=== PATIENT | male | born 1930 | race Caucasian/White ===

== ENCOUNTER 2018-11-02 13:44 | Inpatient (IN) | payer OTHER ==
[~2018-11-02] VITALS: Ht 170.2 cm; Wt 63.5 kg
[2018-11-02 13:47] VITALS: BP 111/63
[2018-11-02] MEDS ORDERED: FLECAINIDE ACET50 M1 PO (13:48)
[2018-11-02] MEDS ORDERED: LISINOPRIL20 MG PO (13:49)
[2018-11-02] MEDS ORDERED: SIMVASTATIN40 MG PO (13:49)
[2018-11-02 14:48] LABS: URINE BILIRUBIN NEGATIVE (Negative); URINE BLOOD 2+ (Negative); URINE CLARITY CLEAR; URINE COLOR YELLOW; URINE GLUCOSE-RANDOM* NEGATIVE (Negative); URINE KETONES NEGATIVE (Negative); URINE NITRITE-REFLEX NEGATIVE (Negative); URINE PROTEIN (DIPSTICK) TRACE (Negative); URINE SPECIFIC GRAVITY 1.015 (1.005-1.035)
[2018-11-02 14:50] LABS: URINE LEUKOCYTES-REFLEX 3+ (Negative)
[2018-11-02 15:11] LABS: URINE RBC >20 Many /HPF (0-2); URINE WBC-REFLEX >25 Many /HPF (0-5)
[2018-11-02 15:11] LABS: ABSOLUTE NEUTROPHILS 10.7 thou/uL (1.4-8.2); BASOPHILS 0.3 % (0.0-2.0); EOSINOPHILS 0.1 % (0.0-3.0); HEMATOCRIT 40.6 % (42.0-52.0); HEMOGLOBIN 13.3 gm/dL (14.0-18.0); LYMPHOCYTES 1.9 % (24.0-44.0); MCH 31.9 pg (26.0-34.0); MCHC 32.7 g/dL (28.0-37.0); MCV 97.3 fL (80.0-100.0); MONOCYTES 5.4 % (1.0-8.0); PLATELET COUNT 181 thou/uL (150-400); POLYS 92.3 % (36.0-66.0); RBC 4.18 mil/uL (4.50-6.00); RDW 14.4 % (10.5-14.5); WBC 11.6 thou/uL (4.0-11.0)
[2018-11-02 15:12] LABS: WBC CLUMPS Moderate (None Seen)
[2018-11-02 15:13] LABS: CASTS None Seen /LPF (None Seen); CRYSTALS None Seen /LPF (None Seen); SQUAMOUS 0-3 Few /LPF (0-3)
[2018-11-02 15:17] LABS: CALCIUM 8.9 mg/dL (8.5-10.1); CREATININE 1.5 mg/dL (0.7-1.3)
[2018-11-02 15:23] LABS: ALBUMIN 3.3 g/dL (3.4-5.0); TOTAL BILIRUBIN 1.8 mg/dL (<0.1-1.0); TOTAL PROTEIN 6.6 g/dL (6.4-8.2)
[2018-11-02 16:02] VITALS: BP 113/57
[2018-11-02 16:42] VITALS: BP 121/52
[2018-11-02 17:20] VITALS: BP 119/53
--- NOTE | 2018-11-02 18:30 | NUR ---
PT RECEIVED FROM [facility] ER TO RM 430 ALERT AND IN NO ACUTE DISTRESS. PT VERY WEAK AND NEEDS ASSIST TO TRANSFER OR AMBULATE AT THIS TIME. BASELINE AMBULATES INDEPENDENTLY. PT VERY FORGETFUL. SON AT BEDSIDE. URINE CLOUDY AND ODOROUS.
[2018-11-02 20:14] VITALS: BP 108/59
--- NOTE | 2018-11-03 02:05 | NUR ---
PT ASSESSMENT COMPLETED. PT IS ALERT AND ORIENTED UPON ADMISSION. HE GOT VERY RESTLESS AND CONFUSED AT BEDTIME. PT KEPT GETTING UP TO URINATE BUT YET HAS A COLLAZO CATHETER. PT HAD TO BE REMINDED SEVERAL TIMES THAT HE IS IN THE HOSPITAL. HE KEPT FIDGETING WITH COLLAZO. SOME CLOUDY URINE OUTPUT NOTED. PT GIVEN SOME TYLENOL AND AFTER ABOUT 2 HOURS FINALLY WENT TOO SLEEP. FALL PREC IN PLACE. WILL CONTINUE WITH POC TILL EOS.
[2018-11-03 05:42] LABS: CALCIUM 8.7 mg/dL (8.5-10.1); CREATININE 1.3 mg/dL (0.7-1.3); POTASSIUM 3.9 mmol/L (3.5-5.1)
[2018-11-03 07:15] VITALS: BP 113/39
--- NOTE | 2018-11-03 15:27 | NUR ---
ASSUMED PATIENT CARE AT 7 AM. CLIENT ORIENTED TO SELF AND SITUATION, CLIENT RESPONDED "I DON'T KNOW" WHEN ASKED WHAT YEAR IT IS. CLIENT WAS UNAWARE HE WAS IN THE HOSPITAL AND STATED "I DON'T KNOW" WHEN ASKED WHERE HE WAS. AT BEGINNING OF SHIFT CLIENT'S URINE WAS DARK YELLOW, BUT NOW THE URINE IS YELLOW- STRAW COLORED. COLLAZO CATHETER IN PLACE. CLIENT'S DIET IS ADEQUATE. CLIENT IS CONFUSED AND CALLS FOR HELP BUT DOESN'T KNOW WHAT HE NEEDS. CLIENT TOOK OFF HIS GOWN EARLIER IN THE DAY AND STATED HE WAS HOT, BUT ALLOWED RN EDUARDO AND Irish TO PUT HIS GOWN BACK ON. CLIENT CONTINUES TO HYDRATE WITH SMALL CUPS OF WATER WHEN OFFERED. WILL CONTINUE TO MONITOR. FALL PRECAUTIONS ARE IN PLACE.
[2018-11-03 15:39] VITALS: BP 145/58
[2018-11-03 20:30] VITALS: BP 145/64
--- NOTE | 2018-11-04 03:49 | NUR ---
PATIENT ALERT AND ORIENTED TO SELF ONLY. VERY CONFUSED AT SHIFT CHANGE. SEVERAL ATTEMPTS TO GET OOB SO HE COULD GET HIS CLOTHES ON AND GO TO WORK. COLLAZO TO D/D AND PATIENT PULLS ON IT AT TIMES. RESTLESS AND YELLING TO PEOPLE IN THE HALLWAY TO GET IN HIS ROOM AND HELP HIM. MEDICATED WITH SEROQUEL BY AM NURSE AROUND 183. HOWEVER, THIS NURSE MEDICATED PATIENT WITH ZOFRAN AT 2012 IN AN ATTEMPT TO CALM HIM DOWN HE WAS STILL VERY AGITATED AND RESTLESS. APPROXIMATELY 2129 PAIENT CALMED DOWN AND WAS ABLE TO GO TO SLEEP AND REST MOST OF THE NIGHT. WILL MONITOR.
[2018-11-04 05:25] LABS: HEMATOCRIT 38.3 % (42.0-52.0); HEMOGLOBIN 12.8 gm/dL (14.0-18.0); MCH 32.2 pg (26.0-34.0); MCHC 33.3 g/dL (28.0-37.0); MCV 96.6 fL (80.0-100.0); RBC 3.96 mil/uL (4.50-6.00); RDW 14.1 % (10.5-14.5); WBC 5.1 thou/uL (4.0-11.0)
[2018-11-04 07:37] VITALS: BP 132/74
--- NOTE | 2018-11-04 11:25 | NUR ---
Assumed care of to at 0700. Pt a&o to self and situation only. Mendez catheter in place. Pt has good appetite. IVF infusing. Pt has been calm so far in the shift. Fall precautions in place. Will continue to monitor.
[2018-11-04 16:02] LABS: URINE BILIRUBIN NEGATIVE (Negative); URINE BLOOD 2+ (Negative); URINE CLARITY CLEAR; URINE COLOR YELLOW; URINE GLUCOSE-RANDOM* NEGATIVE (Negative); URINE KETONES NEGATIVE (Negative); URINE LEUKOCYTES 1+ (Negative); URINE NITRITE NEGATIVE (Negative); URINE PROTEIN (DIPSTICK) NEGATIVE (Negative); URINE SPECIFIC GRAVITY 1.015 (1.005-1.035); URINE UROBILINOGEN >= 8.0 E.U./dl (0.2-1.0)
[2018-11-04 16:10] VITALS: BP 107/60
[2018-11-04 16:15] LABS: BACTERIA None Seen /HPF (None Seen); CASTS None Seen /LPF (None Seen); CRYSTALS None Seen /LPF (None Seen); MUCUS 0-3 Light strn/LPF (None Seen); SQUAMOUS None Seen /LPF (0-3); URINE RBC 3-10 Few /HPF (0-2); URINE WBC >25 Many /HPF (0-5); WBC CLUMPS Moderate (None Seen)
[2018-11-04 19:39] VITALS: BP 140/62
--- NOTE | 2018-11-05 02:28 | NUR ---
ASSUMED CARE OF PT @1900 PT ASSESSED AT START OF SHIFT ALERT AND ORIENTED AT START OF SHIFT BUT SOMETIMES FORGETFULL. DENIES PAIN. KEPT ASKING ABOUT THE TLEPHONE NO OF SON BERENICE GARDNER IF HE DID LEAVE A MISS CALL FOR THE STATION AND IF HE DID COME TO SEE HIM, PT STATES HE WANTS TO GO HOME. THIS NURSE ORIENTED PT THAT FAMILY WILL BE BACK AGAIN TOMORROW. NIGHT TIME SEROQUEL GIVEN FOR BEDTIME. PEPE D/C BY AM NURSE BEFORE SHIFT CHANGE. PT UP AD ULISES TO THE BATHROOM FOR TONIGHT DOESN'T USE CALL LIGHT, GETS UP FROM BED. BED ALARM ON AND FALL PREC IN PLACE. SLEPT IN AND OUT THROUGH THE NIGHT ONLY GETS UP TO THE BATHROOM. WILL CONT WITH POC TILL EOS.
[2018-11-05 03:45] VITALS: BP 149/59
[2018-11-05 08:38] VITALS: BP 146/55
--- NOTE | 2018-11-05 16:23 | NUR ---
PT ADMITTED RELATED TO URINARY/BLADDER ISSUES. CM REVIEWED CHART AND SPOKE WITH CARE TEAM. CM MET WITH PT AT BEDSIDE THIS DAY. PT SEEMED A&O X 4. CM ROLE INTRODUCED. PT INDICATED HE LIVES IN AM APARTMENT WITH SOME OTHER GUYS BUT THEY WERE OUT OF TOWN RIGHT NOW. PT INDICATED HE HAD ELEVATOR ACCESS BUT THAT THERE WERE 7 OR 8 STEPS INSIDE. 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 PT'S SON CALLED AND INDICATED THAT PT INFACT LIVES IN HIS OWN HOUSE ALONE AND THAT HE VISITS AT LEAST ONCE EVERY DAY. HE INDICATED THAT IF NEEDED HE WOULD BE ABLE TO MOVE IN WITH PT TO PROVIDE ASSISTANCE/SUPERVISON. HIS PHONE NUMBER IS . HE INDICATED THAT HE HAD ABSERVED PT BEING MORE CONFUSED CARD SELLER. CM INDICATED THAT THERAPY TO WORK WITH PT AND MAKE RECOMMENDATIONS BUT THAT CM HAD GIVEN PT A SNF LIST. CM TO FOLLOW INDICATED WITH DC PLANNING.
[2018-11-05 16:35] VITALS: BP 133/48
--- NOTE | 2018-11-05 16:43 | NUR ---
Assumed pt car at 7am.Pt in and out of bed to bathroom with sba.Assessment completed.vss.Pt was agitated and restless, constantly setting off chair alarm and unable to follow direction.He wanted to dc home today and removed hospital gown and wore his own personal cloth.Dr Kirby notified but no return call noted.Pt family called for redirection.Will continue to monitor.
[2018-11-05 19:30] VITALS: BP 129/54
[2018-11-06 03:50] VITALS: BP 148/52
--- NOTE | 2018-11-06 04:14 | NUR ---
ASSESSMENT COMPLETED. PT CONTINUES TO BE CONFUSED AND FORGETFUL.GETS UP RANDOMLY SETTING BED ALARM OFF-HE DOES NOT CALL FOR HELP. ASKING FOR SON AND ALSO WANTING TO GO HOME. FREQUENT RE-ORIENTATION PROVIDED. PT DENIES PAIN. HAS CONTROL OF BLADDER.DRINKS WHEN OFFERED FLUIDS. AFEBRILE. DENIES SOA-ON ROOM AIR. FALL PREC IN PLACE. WILL CONTINUE WITH POC TILL EOS.
[2018-11-06 07:48] VITALS: BP 163/58
--- NOTE | 2018-11-06 11:55 | NUR ---
Assumed pt care at 7am.Pt in bed alert and oriented to person and place but impulsive and restless.Assessment completed.vss.pt wanted to go home today and constantly setting bed alarm off.Dr Crane notified,he said he will know after 11am meeting case management team.Ambulated with pt in hallways to calm him down.Good endurance noted.Will continue to monitor.
[2018-11-06] MEDS ORDERED: SEROQUEL 25 MG25 M1 PO (14:48)
[2018-11-06] MEDS ORDERED: FLOMAX0.4 MG PO (14:48)
[2018-11-06] MEDS ORDERED: CEFUROXIME500 MG PO ×2 (14:50→15:10)
[2018-11-06 14:54] VITALS: BP 163/58
[2018-11-06 15:12] VITALS: BP 163/58
--- NOTE | 2018-11-06 15:15 | NUR ---
CARE TEAM INDICATED THAT PT IS MEDICALLY STABLE TO DC HOME THIS DAY. ST INDICATED THAT PT NEEDS 24/7 SUPERVISION UPON DC. CM SPOKE WITH PT'S SON BERENICE AND HE INDICATED HE IS ABLE TO PROVIDE THIS. CM SPOKE WITH HIM ABOUT PD SERVICES AND LTC MEM CARE. PT IS TO HAVE HOME HEALTH PT, OT, ST, AND NURSING HH SERVICES. REFERRAL SENT TO [facility]. PT'S SON IS TO TRANSPORT PT HOME THIS EVENING BETWEEN 1989-1989. CM PROVIDED INFOR JAVI DR. GILLIS FOR FOLLOW UP CONSULT UPON DC. NO OTHER CM INTERVENTION INDICATED. CASE CLOSED.
[2018-11-06 16:02] VITALS: BP 163/58
== END 2018-11-06 18:30 | disposition home health service (06) | DRG 872 ==
LOC: ER 13:44 → EROBS 15:56 → 4E 15:56
PROVIDERS: Emergency Medicine; Internal Medicine; ADMIT Hospitalist
DX: A41.9 Sepsis, unspecified organism (principal); N30.00 Acute cystitis without hematuria; I10 Essential (primary) hypertension; N40.1 Benign prostatic hyperplasia with lower urinary tract symptoms; R33.8 Other retention of urine; E78.5 Hyperlipidemia, unspecified; F03.90 Unspecified dementia, unspecified severity, without behavioral disturbance, psychotic disturbance, mood disturbance, and anxiety; E80.6 Other disorders of bilirubin metabolism; Z87.442 Personal history of urinary calculi; Z79.899 Other long term (current) drug therapy
CPT/HCPCS: 10084; 10183

== ENCOUNTER 2019-01-14 09:55 | Emergency (ER) | payer OTHER ==
[~2019-01-14] VITALS: Ht 172.7 cm; Wt 68.0 kg
[~2019-01-14 09:55] MED LIST: CEFUROXIME500 MG PO; FLECAINIDE ACET50 M1 PO; FLOMAX0.4 MG PO; LISINOPRIL20 MG PO; SEROQUEL 25 MG25 M1 PO; SIMVASTATIN40 MG PO
[2019-01-14] MEDS ORDERED: LISINOPRIL20 MG PO (10:59)
[2019-01-14] MEDS ORDERED: PROSTATE SR SO1 EACH PO (11:00)
[2019-01-14] MEDS ORDERED: ARICEPT 5 MG TAB5 MG PO (11:00)
[2019-01-14] MEDS ORDERED: ADULT LOW DOSE81 MG PO (11:01)
[2019-01-14] MEDS ORDERED: VITAMIN D1000 UNI2 PO (11:01)
[2019-01-14 11:22] LABS: URINE BILIRUBIN NEGATIVE (Negative); URINE BLOOD 3+ (Negative); URINE CLARITY CLOUDY; URINE COLOR YELLOW; URINE GLUCOSE-RANDOM* NEGATIVE (Negative); URINE KETONES NEGATIVE (Negative); URINE LEUKOCYTES-REFLEX 3+ (Negative); URINE NITRITE-REFLEX NEGATIVE (Negative); URINE PROTEIN (DIPSTICK) 2+ (Negative); URINE SPECIFIC GRAVITY 1.015 (1.005-1.035); URINE UROBILINOGEN 0.2 E.U./dl (0.2-1.0)
[2019-01-14 11:30] LABS: URINE RBC >20 Many /HPF (0-2)
[2019-01-14 11:31] LABS: AMORPHOUS URATES Few /LPF (None Seen); BACTERIA-REFLEX 1-9 Few /HPF (None Seen); CASTS None Seen /LPF (None Seen); SQUAMOUS 0-3 Few /LPF (0-3); URINE WBC-REFLEX 6-15 Few /HPF (0-5)
[2019-01-14] MEDS ORDERED: FLOMAX0.4 MG PO (11:43)
[2019-01-14] MEDS ORDERED: KEFLEX500 M1 PO (11:43)
[2019-01-14 11:47] VITALS: BP 109/42
== END 2019-01-14 12:04 | disposition home or self-care (01) ==
LOC: ER 09:55
PROVIDERS: Emergency Medicine
DX: N39.0 Urinary tract infection, site not specified (principal); R33.9 Retention of urine, unspecified; I10 Essential (primary) hypertension; E78.00 Pure hypercholesterolemia, unspecified; Z87.440 Personal history of urinary (tract) infections; Z87.442 Personal history of urinary calculi

== ENCOUNTER 2019-01-23 03:07 | Emergency (ER) | payer OTHER ==
[~2019-01-23] VITALS: Ht 167.6 cm; Wt 68.0 kg
[~2019-01-23 03:07] MED LIST changes: +ADULT LOW DOSE81 MG PO; +ARICEPT 5 MG TAB5 MG PO; +KEFLEX500 M1 PO; +PROSTATE SR SO1 EACH PO; +VITAMIN D1000 UNI2 PO
[2019-01-23] MEDS ORDERED: FLOMAX0.4 MG PO (03:51)
[2019-01-23 04:04] VITALS: BP 130/53
== END 2019-01-23 04:56 | disposition home or self-care (01) ==
LOC: ER 03:07
DX: R33.9 Retention of urine, unspecified (principal); R60.0 Localized edema; I10 Essential (primary) hypertension; E78.00 Pure hypercholesterolemia, unspecified; Z79.899 Other long term (current) drug therapy; Z79.82 Long term (current) use of aspirin; Z87.442 Personal history of urinary calculi